=== PATIENT | male | born 1950 | race Caucasian/White ===

== ENCOUNTER 2019-05-29 14:25 | Inpatient (IN) | payer MEDICARE ==
[~2019-05-29] VITALS: Ht 182.9 cm; Wt 72.5 kg
--- NOTE | 2019-05-29 14:44 | NUR ---
PT SEEN BY RAMU NEGRON IN RESPIRATORY TRIAGE AND DIVERTED TO ER MAIN TO AVOID COVID/RESP EXPOSURE.
--- NOTE | 2019-05-29 14:52 | NUR ---
TASK RN: PT MOVED TO ROOM 17, PLACED ON MONITORS, AUTO BP, PULSE OX. DR HA AT BEDSIDE TO [facility] PT.
[2019-05-29] MEDS ORDERED: ASPIRIN 81 MG TABLET CHEW PO ONE (15:00)
--- NOTE | 2019-05-29 15:10 | NUR ---
PIV PLACED FROM WHICH LAB WERE DRAWN AND SENT FOR ANALYSIS VSS ON PARTS ANALYST REPORTS CHEST PAIN AT 3/10 ISOLATED TO LEFT CHEST. WORSE WITH DEEP BREATHING
[2019-05-29] MEDS ORDERED: ASPIRIN 81 MG TABLET CHEW ONE (15:15)
--- NOTE | 2019-05-29 15:18 | NUR ---
MEDICATED PER EMAR (162MG OF ASA). LAST ASA WAS LAST NIGHT REPORT TO IVONNE WOLFF FOR LUNCH COVERAGE
[2019-05-29 15:19] LABS: BASOPHILS # (AUTO) 0.06 x10^3/uL (0-0.1); BASOPHILS % (AUTO) 1 % (0-1); EOSINOPHILS # (AUTO) 0.13 x10^3/uL (0-0.4); EOSINOPHILS % (AUTO) 1 % (1-7); LYMPHOCYTES # (AUTO) 1.59 x10^3/uL (1-3.4); LYMPHOCYTES % (AUTO) 16 % (22-44); MD NO; MEAN CORPUSCULAR HEMOGLOBIN 32.6 pg (27.5-34.5); MEAN CORPUSCULAR HGB CONC 34.2 g/dL (33.2-36.2); MEAN CORPUSCULAR VOLUME 95.3 fL (81-97); MEAN PLATELET VOLUME 7.6 fL (7.4-10.4); MONOCYTES # (AUTO) 1.03 x10^3/uL (0.2-0.8); MONOCYTES % (AUTO) 10 % (2-9); NEUTROPHILS # (AUTO) 7.23 x10^3/uL (1.8-6.8); NEUTROPHILS % (AUTO) 72 % (42-75); PLATELET COUNT 252 x10^3/uL (130-400); RED BLOOD COUNT 4.09 x10^6/uL (4.38-5.82); RED CELL DISTRIBUTION WIDTH 13.4 % (9.4-14.8)
[2019-05-29 15:24] LABS: D-DIMER 0.61 ug/mlFEU (0.00-0.52); INTERNATIONAL NORMALIZED RATIO 1.07 (0.93-1.1); PROTHROMBIN TIME 11.3 Seconds (9.6-11.5)
[2019-05-29 15:25] LABS: ALANINE AMINOTRANSFERASE 16 U/L (12-78); ALBUMIN 3.5 g/dL (3.4-5.0); ANION GAP 7 mmol/L (5-15); CALCIUM 8.8 mg/dL (8.5-10.1); CHLORIDE 94 mmol/L (98-107); CREATININE 1.24 mg/dL (0.7-1.3)
[2019-05-29 15:29] LABS: ALKALINE PHOSPHATASE 68 U/L (45-117)
[2019-05-29 15:37] LABS: TROPONIN I 0.266 ng/mL (0.000-0.045)
[2019-05-29] MEDS ORDERED: SODIUM CHLORIDE FLUSH 10ML SYR IVF ONE (16:00)
[2019-05-29] MEDS ORDERED: POTASSIUM CHLORIDE 40 MEQ in SODIUM CHLORIDE 0.9% 500 ML IV ONE (16:00)
[2019-05-29] MEDS ORDERED: POTASSIUM CHLORIDE 20 MEQ PACKET PO ONE (16:30)
--- NOTE | 2019-05-29 16:30 | NUR ---
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 MALDONADO AT BEDSIDE TO ADMIT
[2019-05-29] MEDS ORDERED: POTASSIUM CHLORIDE 20 MEQ PACKET ONE (16:33)
--- NOTE | 2019-05-29 16:55 | NUR ---
PROVIDER ASKED TO REPLETE MAG FOR POTASSIUM REABSORPTION-DR. MALDONADO CONSIDERING
[2019-05-29] MEDS ORDERED: NITROGLYCERIN 0.4 MG/SPRAY SL PRN (17:00)
[2019-05-29] MEDS ORDERED: ACETAMINOPHEN 325 MG TABLET PO PRN (17:00)
[2019-05-29] MEDS ORDERED: morphine SULFATE 10 MG/ML, 1ML IV PRN (17:00)
[2019-05-29] MEDS ORDERED: NITROGLYCERIN 0.4 MG BOTTLE (25 TABS) SL PRN (17:00)
[2019-05-29] MEDS ORDERED: morphine SULFATE 10 MG/ML, 1ML IVPush PRN (17:00)
[2019-05-29] MEDS ORDERED: BACLOFEN 10 MG TABLET PO PRN (17:00)
--- NOTE | 2019-05-29 17:00 | NUR ---
TO RADIOLOGY FOR CERVICAL FILMS
[2019-05-29 18:41] VITALS: BP 170/80
[2019-05-29 19:57] VITALS: BP 152/68
[2019-05-29] MEDS: AMLODIPINE 5 MG TABLET PO SCH (22:00)
[2019-05-29] MEDS: SODIUM CHLORIDE FLUSH 10ML SYR IVF SCH (22:00)
[2019-05-29] MEDS ORDERED: ASPI-496 PO (22:21)
[2019-05-29] MEDS ORDERED: LEVO125T5 PO (22:21)
[2019-05-29] MEDS ORDERED: AMLO10TA4 PO (22:21)
[2019-05-29] MEDS ORDERED: LISI40TA PO (22:21)
[2019-05-29 23:02] VITALS: BP 127/74
[2019-05-29] MEDS: LEVOTHYROXINE 125 MCG TABLET PO SCH (23:04)
[2019-05-29] MEDS: ASPIRIN 81 MG TABLET EC PO SCH (23:04)
[2019-05-29] MEDS: LISINOPRIL 40 MG TABLET PO SCH (23:04)
[2019-05-29] MEDS: ATORVASTATIN 80 MG TABLET PO SCH (23:51)
[2019-05-30 00:29] VITALS: BP 131/71
[2019-05-30 04:51] LABS: ANION GAP 3 mmol/L (5-15); CALCIUM 9.1 mg/dL (8.5-10.1); CHLORIDE 102 mmol/L (98-107); CHOLESTEROL, TOTAL 186 mg/dL (140-239); TRIGLYCERIDES 74 mg/dL (50-200); VLDL CHOLESTEROL 15 mg/dL (0-25)
[2019-05-30 04:55] LABS: HDL CHOL % 20 % (26-37); HDL CHOLESTEROL (DIRECT) 37 mg/dL (40-60); LDL CHOLESTEROL,CALCULATED 134 mg/dL (54-169); LDL/HDL RATIO 3.6 (0.5-3.0)
[2019-05-30] MEDS ORDERED: ASPIRIN 325 MG TABLET EC PO SCH (06:00)
[2019-05-30] MEDS ORDERED: LEVOTHYROXINE 75 MCG TABLET PO SCH (06:00)
[2019-05-30 08:20] VITALS: BP 150/76
[2019-05-30] MEDS ORDERED: LISINOPRIL 5 MG TABLET PO SCH (09:00)
[2019-05-30] MEDS: SODIUM CHLORIDE FLUSH 10ML SYR IVF SCH ×2 (10:15→20:58)
[2019-05-30] MEDS: LISINOPRIL 40 MG TABLET PO SCH (10:15)
[2019-05-30] MEDS: AMLODIPINE 5 MG TABLET PO SCH ×2 (10:15→20:58)
[2019-05-30 13:30] VITALS: BP 112/68
[2019-05-30 20:09] VITALS: BP 165/76
[2019-05-30] MEDS: ATORVASTATIN 80 MG TABLET PO SCH (20:58)
[2019-05-30] MEDS: LEVOTHYROXINE 125 MCG TABLET PO SCH (21:04)
[2019-05-30] MEDS: ASPIRIN 81 MG TABLET EC PO SCH (21:05)
[2019-05-31 02:32] VITALS: BP 124/66
[2019-05-31 05:39] LABS: BASOPHILS # (AUTO) 0.04 x10^3/uL (0-0.1); BASOPHILS % (AUTO) 1 % (0-1); EOSINOPHILS # (AUTO) 0.44 x10^3/uL (0-0.4); EOSINOPHILS % (AUTO) 7 % (1-7); LYMPHOCYTES # (AUTO) 1.57 x10^3/uL (1-3.4); LYMPHOCYTES % (AUTO) 24 % (22-44); MD NO; MEAN CORPUSCULAR HEMOGLOBIN 32.5 pg (27.5-34.5); MEAN CORPUSCULAR HGB CONC 33.9 g/dL (33.2-36.2); MEAN PLATELET VOLUME 8.4 fL (7.4-10.4); MONOCYTES # (AUTO) 0.65 x10^3/uL (0.2-0.8); MONOCYTES % (AUTO) 10 % (2-9); NEUTROPHILS # (AUTO) 3.93 x10^3/uL (1.8-6.8); NEUTROPHILS % (AUTO) 59 % (42-75); PLATELET COUNT 236 x10^3/uL (130-400); RED BLOOD COUNT 3.92 x10^6/uL (4.38-5.82); RED CELL DISTRIBUTION WIDTH 13.9 % (9.4-14.8)
[2019-05-31 05:47] LABS: CHLORIDE 103 mmol/L (98-107)
[2019-05-31 05:56] LABS: ANION GAP 6 mmol/L (5-15); CALCIUM 9.6 mg/dL (8.5-10.1); CREATININE 0.86 mg/dL (0.7-1.3)
[2019-05-31] MEDS: LEVOTHYROXINE 125 MCG TABLET PO SCH (06:10)
[2019-05-31 08:04] VITALS: BP 172/92
[2019-05-31] MEDS: ASPIRIN 81 MG TABLET EC PO SCH (08:07)
[2019-05-31] MEDS: AMLODIPINE 5 MG TABLET PO SCH ×2 (08:07→20:47)
[2019-05-31] MEDS: SODIUM CHLORIDE FLUSH 10ML SYR IVF SCH ×2 (08:07→20:47)
[2019-05-31] MEDS: LISINOPRIL 40 MG TABLET PO SCH (08:07)
[2019-05-31 08:30] VITALS: BP 157/81
[2019-05-31] MEDS ORDERED: POTASSIUM CHLORIDE 20 MEQ TAB.ER.PRT PO ONE (10:30)
[2019-05-31] MEDS: SODIUM CHLORIDE 0.9% 1,000 ML IV SCH ×4 (11:08→19:49)
[2019-05-31] MEDS ORDERED: MIDAZOLAM 1 MG/ML, 5ML ONE (11:48)
[2019-05-31] MEDS ORDERED: FENTANYL PF 100 MCG/2ML ONE (11:48)
[2019-05-31] MEDS ORDERED: TICAGRELOR 90 MG TABLET ONE (11:48)
[2019-05-31] MEDS ORDERED: HEPARIN 1,000 UNITS/ML, 10ML ONE (11:49)
[2019-05-31] MEDS ORDERED: VERAPAMIL 2.5 MG/ML, 2ML ONE (11:49)
[2019-05-31] MEDS ORDERED: BIVALIRUDIN 250 MG ONE (11:49)
[2019-05-31] MEDS ORDERED: LIDOCAINE-MPF 1%, 5ML ONE (11:49)
[2019-05-31] MEDS ORDERED: POTASSIUM CHLORIDE 10% 40 MEQ/30 ML UDC PO ONE (12:00)
[2019-05-31 12:40] VITALS: BP 143/78
[2019-05-31 19:14] VITALS: BP 153/71
[2019-05-31] MEDS: ATORVASTATIN 80 MG TABLET PO SCH (20:47)
[2019-06-01 02:57] VITALS: BP 137/74
[2019-06-01] MEDS: LEVOTHYROXINE 125 MCG TABLET PO SCH (05:25)
[2019-06-01] MEDS: ASPIRIN 81 MG TABLET EC PO SCH (05:25)
[2019-06-01 06:07] LABS: ANION GAP 5 mmol/L (5-15); BASOPHILS # (AUTO) 0.06 x10^3/uL (0-0.1); BASOPHILS % (AUTO) 1 % (0-1); CALCIUM 9.2 mg/dL (8.5-10.1); CHLORIDE 102 mmol/L (98-107); CREATININE 0.84 mg/dL (0.7-1.3); EOSINOPHILS # (AUTO) 0.39 x10^3/uL (0-0.4); EOSINOPHILS % (AUTO) 6 % (1-7); LYMPHOCYTES % (AUTO) 26 % (22-44); MD NO; MEAN CORPUSCULAR HEMOGLOBIN 32.8 pg (27.5-34.5); MEAN CORPUSCULAR HGB CONC 34.4 g/dL (33.2-36.2); MEAN CORPUSCULAR VOLUME 95.2 fL (81-97); MEAN PLATELET VOLUME 8.1 fL (7.4-10.4); MONOCYTES # (AUTO) 0.53 x10^3/uL (0.2-0.8); MONOCYTES % (AUTO) 9 % (2-9); NEUTROPHILS # (AUTO) 3.54 x10^3/uL (1.8-6.8); NEUTROPHILS % (AUTO) 58 % (42-75); PLATELET COUNT 243 x10^3/uL (130-400); RED BLOOD COUNT 3.77 x10^6/uL (4.38-5.82); RED CELL DISTRIBUTION WIDTH 13.1 % (9.4-14.8)
[2019-06-01 06:35] VITALS: BP 161/82
[2019-06-01] MEDS ORDERED: POTASSIUM CHLORIDE 20 MEQ TAB.ER.PRT PO SCH (08:30)
[2019-06-01] MEDS: LISINOPRIL 40 MG TABLET PO SCH (08:44)
[2019-06-01] MEDS: AMLODIPINE 5 MG TABLET PO SCH (08:45)
[2019-06-01] MEDS: SODIUM CHLORIDE FLUSH 10ML SYR IVF SCH (09:00)
== END 2019-06-01 12:00 | disposition left against medical advice (07) | DRG 287 ==
LOC: ED 15:01 → EDIP 16:20 → INTOOBSV 16:20 → SUATTDRO 16:23 → 5SO 18:36 → OBSVTOIN 06-01 08:30
PROVIDERS: ADMIT Hospitalist; ATTEND Hospitalist
PROC: 4A023N7 Measurement of Cardiac Sampling and Pressure, Left Heart, Percutaneous Approach (ICD-10-PCS; principal; 2019-05-31)
PROC: B2111ZZ Fluoroscopy of Multiple Coronary Arteries using Low Osmolar Contrast (ICD-10-PCS; 2019-05-31)
DX: R07.89 Other chest pain (principal); E87.1 Hypo-osmolality and hyponatremia; I25.10 Atherosclerotic heart disease of native coronary artery without angina pectoris; Z53.29 Procedure and treatment not carried out because of patient's decision for other reasons; E03.9 Hypothyroidism, unspecified; E78.5 Hyperlipidemia, unspecified; E87.6 Hypokalemia; F17.210 Nicotine dependence, cigarettes, uncomplicated; G62.9 Polyneuropathy, unspecified; I10 Essential (primary) hypertension; I35.1 Nonrheumatic aortic (valve) insufficiency; M19.90 Unspecified osteoarthritis, unspecified site; Z66 Do not resuscitate; Z79.82 Long term (current) use of aspirin; Z82.49 Family history of ischemic heart disease and other diseases of the circulatory system; Z86.11 Personal history of tuberculosis; Z98.1 Arthrodesis status; Z98.61 Coronary angioplasty status; Z88.8 Allergy status to other drugs, medicaments and biological substances; Z71.6 Tobacco abuse counseling; R91.8 Other nonspecific abnormal finding of lung field; B19.20 Unspecified viral hepatitis C without hepatic coma
CPT/HCPCS: 36415; 71045; 71275; 72040; 80048; 80053; 80061; 83735; 83880; 84443; 84484; 85025; 85379; 85610; 93005; 93306; 93458; 99156; C1769; C1894; G0378; J0583; J1644; J2250; J3010; J3480; C1887; J7030; J7040; Q9967